=== PATIENT | female | born 2000 | race Caucasian/White ===

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

== ENCOUNTER 2018-12-05 14:15 | Emergency (ER) | payer OTHER, SELFPAY ==
[2018-12-05] MEDS ORDERED: Clindamycin 150 MG CAP ONE (14:51)
== END 2018-12-05 15:05 | disposition home or self-care (01) ==
LOC: NAV ERS 14:15
DX: O99.711 Diseases of the skin and subcutaneous tissue complicating pregnancy, first trimester (principal); L03.116 Cellulitis of left lower limb; L03.011 Cellulitis of right finger; L03.113 Cellulitis of right upper limb; O99.281 Endocrine, nutritional and metabolic diseases complicating pregnancy, first trimester; E03.9 Hypothyroidism, unspecified; O99.341 Other mental disorders complicating pregnancy, first trimester; F41.9 Anxiety disorder, unspecified; F43.10 Post-traumatic stress disorder, unspecified; O99.331 Smoking (tobacco) complicating pregnancy, first trimester; F17.210 Nicotine dependence, cigarettes, uncomplicated; O99.011 Anemia complicating pregnancy, first trimester; Z3A.01 Less than 8 weeks gestation of pregnancy
CPT/HCPCS: 87070; 87077; 87186; 87205; 99283

== ENCOUNTER 2019-03-24 15:39 | Outpatient (CLI) | payer OTHER ==
--- NOTE | 2019-03-24 16:39 | ULT ---
Obstetrical ultrasound: 03/24/2019 COMPARISON: None HISTORY: 18-year-old female, evaluate size and dates/anatomy TECHNIQUE: Multiplanar grayscale sonographic imaging of the gravid uterus obtained. FINDINGS:There is a single intrauterine gestation present demonstrating a vertex presentation. The pl acenta is located posteriorly, demonstrating no evidence for previa or abruption. heart rate is 153 bpm. The imaged spine appears grossly unremarkable. The intracranial contents, kidneys, four-chamber heart view, bladder, nose and lips, umbilical cord, and umbilical cord insertion site appear grossly unremarkable. The amniotic fluid index is 17.5 cm. biometry: Biparietal diameter 5.3 cm 22 weeks 1 day Head circumference 20 cm 22 weeks 1 day Abdominal circumference 16.7 cm 21 weeks 4 days Femur length 3.6 cm 21 weeks 3 days Average age based on ultrasound is 21 weeks 5 days. Estimated date of delivery is 07/30/2019. Estimated weight is 445 g +/- 65 g. IMPRESSION: Single intrauterine gestation as described above.
== END 2019-03-24 15:40 | disposition home or self-care (01) ==
LOC: NAV ULT 15:39
PROVIDERS: ATTEND Family Medicine
DX: Z34.82 Encounter for supervision of other normal pregnancy, second trimester (principal)
CPT/HCPCS: 76805

== ENCOUNTER 2019-05-10 15:54 | Emergency (ER) | payer OTHER | END 2019-05-10 18:07 | disposition short-term general hospital (02) | LOC: NAV ERS 15:54 | DX: O36.8130 Decreased fetal movements, third trimester, not applicable or unspecified (principal); O99.89 Other specified diseases and conditions complicating pregnancy, childbirth and the puerperium; R10.30 Lower abdominal pain, unspecified; O99.283 Endocrine, nutritional and metabolic diseases complicating pregnancy, third trimester; E03.9 Hypothyroidism, unspecified; O99.013 Anemia complicating pregnancy, third trimester; O99.343 Other mental disorders complicating pregnancy, third trimester; F43.10 Post-traumatic stress disorder, unspecified; F41.9 Anxiety disorder, unspecified; Z3A.28 28 weeks gestation of pregnancy; Z79.899 Other long term (current) drug therapy | CPT/HCPCS: 99284 ==

== ENCOUNTER 2019-10-21 10:55 | Emergency (ER) | payer OTHER ==
[2019-10-22 14:26] LABS: SARS-CoV-2 MS2 Positive; SARS-CoV-2 N Gene Negative; SARS-CoV-2 S Gene Negative; SARS-CoV-2 orf1ab Negative
== END 2019-10-21 11:42 | disposition home or self-care (01) ==
LOC: NAV ERS 10:55
DX: R19.7 Diarrhea, unspecified (principal); R53.83 Other fatigue; Z20.828 Contact with and (suspected) exposure to other viral communicable diseases; Z71.6 Tobacco abuse counseling; E03.9 Hypothyroidism, unspecified; D64.9 Anemia, unspecified; F41.9 Anxiety disorder, unspecified; F43.10 Post-traumatic stress disorder, unspecified
CPT/HCPCS: 87635; 99406; U0003

== ENCOUNTER 2020-12-22 21:08 | Emergency (ER) | payer OTHER | END 2020-12-22 21:38 | disposition home or self-care (01) | LOC: NAV ERS 21:08 | DX: J30.9 Allergic rhinitis, unspecified (principal); E03.9 Hypothyroidism, unspecified; D64.9 Anemia, unspecified | CPT/HCPCS: 99283 ==

== ENCOUNTER 2021-12-02 15:54 | Emergency (ER) | payer OTHER ==
[2021-12-02] MEDS ORDERED: Boostrix 0.5 ML (Tdap) VIAL ONE (16:04)
[2021-12-02] MEDS ORDERED: Ibuprofen 800 MG TAB ONE (16:04)
== END 2021-12-02 17:17 | disposition home or self-care (01) ==
LOC: NAV ERS 15:54
DX: S61.212A Laceration without foreign body of right middle finger without damage to nail, initial encounter (principal); S61.220A Laceration with foreign body of right index finger without damage to nail, initial encounter; X58.XXXA Exposure to other specified factors, initial encounter
CPT/HCPCS: 12001; 90471; 90715

== ENCOUNTER 2023-12-12 15:21 | Emergency (ER) | payer MEDICAID, OTHER, SELFPAY ==
[2023-12-12] MEDS ORDERED: Clindamycin 150 MG CAP ONE (15:47)
[2023-12-12] MEDS ORDERED: Naproxen 500 MG TAB ONE (15:47)
== END 2023-12-12 16:00 | disposition home or self-care (01) ==
LOC: NAV ERS 15:21
DX: L03.115 Cellulitis of right lower limb (principal); Z99.3 Dependence on wheelchair
CPT/HCPCS: 99283

== ENCOUNTER 2024-08-18 13:42 | Emergency (ER) | payer MEDICAID, SELFPAY ==
[2024-08-18] MEDS ORDERED: Cyclobenzaprine 10 MG TAB ONE (14:19)
[2024-08-18] MEDS ORDERED: Naproxen 500 MG TAB ONE (14:19)
[2024-08-18] MEDS ORDERED: Lidocaine 4% Patch ONE (14:19)
[2024-08-18 14:45] LABS: Bilirubin Negative (Negative); Blood, Urine Negative (Negative); Clarity Clear (Clear); Glucose, Urine (Dipstick) Negative (Negative); Ketone, Urine Negative (Negative); Leukocyte Negative (Negative); Nitrite Negative (Negative); Protein, Urine (Dipstick) Negative (Neg-Trace); Specific Gravity, Urine 1.015 (1.005-1.030); Urobilinogen 0.2 mg/dL (Less than 2); pH, Urine 5.5 (5.0-9.0)
[2024-08-18 14:54] LABS: Pregnancy Test - Urine (BHCG) Negative (Negative); Pregu Control Background? CLEAR/WHITE (CLR/WHITE); Pregu Control Bar Appear? YES (CONTROL BAR)
[2024-08-18 15:08] LABS: CAUTI Indications for Culture Pelvic or flank pain; RBC/HPF 0-3 HPF (0-3); Squamous Epithelial 0-3 HPF (0-3); WBC/HPF None Seen HPF (0-3)
[2024-08-18 15:09] LABS: Urine Culture Reflex No No
== END 2024-08-18 15:20 | disposition home or self-care (01) ==
LOC: NAV ERS 13:42
DX: S39.012A Strain of muscle, fascia and tendon of lower back, initial encounter (principal); F17.210 Nicotine dependence, cigarettes, uncomplicated; X58.XXXA Exposure to other specified factors, initial encounter
CPT/HCPCS: 81001; 81025; 99283